=== PATIENT | female | born 1995 | race Caucasian/White ===

== ENCOUNTER 2017-12-01 11:20 | Emergency (ER) | payer OTHER, BC, SELFPAY | END 2017-12-01 14:07 | disposition home or self-care (01) | LOC: M ED 11:20 | DX: Z04.1 Encounter for examination and observation following transport accident (principal); S20.219A Contusion of unspecified front wall of thorax, initial encounter; S40.012A Contusion of left shoulder, initial encounter; V43.52XA Car driver injured in collision with other type car in traffic accident, initial encounter; Y92.89 Other specified places as the place of occurrence of the external cause | CPT/HCPCS: 71046 ==

== ENCOUNTER 2018-03-09 12:04 | Emergency (ER) | payer BC, OTHER, SELFPAY ==
[~2018-03-09] VITALS: Ht 157.5 cm; Wt 50.4 kg
[~2018-03-09 12:04] MED LIST: IBUP-1022 PO
[2018-03-09] MEDS ORDERED: IBUP-1022 PO (13:17)
[2018-03-09] MEDS ORDERED: FLON1SPR NARES (13:17)
[2018-03-09] MEDS ORDERED: AUGM875T28 PO (13:17)
[2018-03-09 13:20] VITALS: BP 105/59
== END 2018-03-09 13:23 | disposition home or self-care (01) ==
LOC: M ED 12:04
DX: H66.003 Acute suppurative otitis media without spontaneous rupture of ear drum, bilateral (principal); J02.0 Streptococcal pharyngitis